=== PATIENT | female | born 2000 | race Two or more races ===

== ENCOUNTER 2024-09-12 19:44 | Emergency (ER) | payer BC, SELFPAY ==
[2024-09-12 19:45] VITALS: BMI 33.6
--- NOTE | 2024-09-12 20:17 | EKG_ITS ---
[facility] Test Date: 2024-09-12 Pat Name: MASON PARKS Department: Room: - Gender: Female [employer]: : 2000 Requested By: Lucio Jeffries Order Number: [id number] Reading MD: Lucio Jeffries Measurements Intervals [place] Rate: 64 P: 25 [place]: 143 QRS: 49 QRSD: 88 T: 54 QT: 390 QTc: 403 Interpretive Statements SINUS RHYTHM WITH OCCASIONAL SUPRAVENTRICULAR PREMATURE COMPLEXES POSSIBLE LEFT ATRIAL ENLARGEMENT [-0.1mV P-WAVE IN V1/V2] No previous ECG available for comparison /[email or web address]/[id number]
[2024-09-12 20:27] VITALS: BP 112/74; PULSE 84; RESP 18; TEMP 36.7; O2SAT 98
--- NOTE | 2024-09-12 21:22 | PC.NURSE ---
PATIENT STATED THAT SHE FELT BETTER AND WAS GOING TO LEAVE. PATIENT LEFT ED AT THIS TIME.
--- NOTE | 2024-09-12 21:22 | PD.EDRME ---
Rapid Medical Screening Exam [facility] Arrival date/time: 09/12/24 19:44 24F with no significant PMH presents to ED with some dizziness and N/V after she went for a long run in the heat today. Patient states after she drank some Coke and electrolytes, patient feels back to normal. Patient wants to leave and doesn't want further testing. Chief Complaint: Dizziness Vital signs: Vital Signs Temperature 98.0 F 09/12/24 20:27 Pulse Rate 84 09/12/24 20:27 Respiratory Rate 18 09/12/24 20:27 Blood Pressure 112/74 09/12/24 20:27 Pulse Oximetry (%) 98 09/12/24 20:27 Oxygen Delivery Method Room Air 09/12/24 20:27
--- NOTE | 2024-09-12 21:25 | PC.NURSE ---
AFTER TALKING TO PROVIDER PT TOOK OFF ER.
== END 2024-09-12 21:26 | disposition left against medical advice (07) ==
PROVIDERS: Emergency Provider Emergency Medicine
DX: R42 Dizziness and giddiness (principal); R11.2 Nausea with vomiting, unspecified; Z53.29 Procedure and treatment not carried out because of patient's decision for other reasons
CPT/HCPCS: 93005; 99281